=== PATIENT | male | born 1955 | race Hispanic/Latino ===

== ENCOUNTER 2021-04-30 12:55 | Observation (INO) | payer MEDICARE ==
[2021-04-26 13:13] LABS: BASOPHILS % 0.4 % (0.0-1.0); EOSINOPHILS % 0.4 % (0.0-6.0); HEMATOCRIT 38.3 % (38.2-49.6); HEMOGLOBIN 12.5 g/dL (14.0-18.0); LYMPHOCYTES # (AUTO) 2.9 (1.0-3.2); LYMPHOCYTES % 30.9 % (18.0-39.1); MEAN CORPUSCULAR HEMOGLOBIN 31.5 pg (28-32); MEAN CORPUSCULAR HGB CONC 32.6 g/dL (31-35); MEAN CORPUSCULAR VOLUME 96.5 fL (81-99); MONOCYTES # (AUTO) 0.9 (0.2-0.8); MONOCYTES % 9.4 % (4.4-11.3); NEUTROPHILS # (AUTO) 5.4 (2.1-6.9); NEUTROPHILS % 58.5 % (38.7-80.0); PLATELET COUNT 341 x10e3/uL (140-360); RED BLOOD COUNT 3.97 x10e6/uL (4.3-5.7); RED CELL DISTRIBUTION WIDTH 13.2 % (11.7-14.4)
[2021-04-26 13:30] LABS: ALBUMIN 4.1 g/dL (3.5-5.0); ALBUMIN/GLOBULIN RATIO 1.4 (0.8-2.0); ALKALINE PHOSPHATASE 94 IU/L (40-150); ANION GAP 16.3 mmol/L (8-16); BLOOD UREA NITROGEN 13 mg/dL (7-26); BUN/CREATININE RATIO 17 (6-25); CALCIUM 9.1 mg/dL (8.4-10.2); CARBON DIOXIDE 23 mmol/L (22-29); CHLORIDE 102 mmol/L (98-107); CREATININE, SERUM 0.76 mg/dL (0.72-1.25); EST GLOMERULAR FILTRATION RATE 103 ML/MIN (60-); GLUCOSE 96 mg/dL (74-118); POTASSIUM 4.3 mmol/L (3.5-5.1); SODIUM 137 mmol/L (136-145)
[2021-04-26 13:33] LABS: ALANINE AMINOTRANSFERASE < 6 IU/L (0-55)
[~2021-04-30] VITALS: Ht 170.2 cm; Wt 58.1 kg
[2021-04-30] VITALS (10 sets, daily range): BP systolic 115–162; BP diastolic 61–72
[~2021-04-30 12:55] MED LIST: AMLODIPINE BESY10 MG PO; CENTRUM SILVER1 EAC6 PO; CLOPIDOGREL75 MG PO; FLOMAX0.4 MG PO; LISINOPRIL10 MG PO; ULTIMATE OMEGA PO
[2021-04-30] MEDS ORDERED: DIPHENHYDRAMINE HCL 25 MG CAP ONE (14:03)
[2021-04-30] MEDS ORDERED: ALPRAZOLAM 0.5 MG TAB ONE (14:03)
[2021-04-30] MEDS ORDERED: MIDAZOLAM HCL 2 MG/2 ML VIAL ONE ×2 (15:27→16:10)
[2021-04-30] MEDS ORDERED: FENTANYL CITRATE/PF 100MCG/2 ML INJ ONE (15:27)
[2021-04-30] MEDS ORDERED: HEPARIN SOD/SOD CHLORIDE 2,000 ML ONE (15:28)
[2021-04-30] MEDS ORDERED: LIDOCAINE HCL 2% LOCAL 20 ML VIAL ONE (15:28)
[2021-04-30] MEDS ORDERED: SODIUM CHLORIDE 0.9% 1000ML 1,000 ML ONE ×3 (15:28→17:26)
[2021-04-30] MEDS ORDERED: IOPAMIDOL 300MG/ML 100 ML INFUS..BTL IV ONE (15:28)
[2021-04-30] MEDS ORDERED: HEPARIN SOD/SOD CHLORIDE 1,000 ML ONE (15:39)
[2021-04-30] MEDS ORDERED: VERAPAMIL HCL 2.5 MG/ML 2 ML VIAL ONE (16:15)
[2021-04-30] MEDS ORDERED: PROTAMINE SULFATE 10 MG/ML 5 ML VIAL ONE (16:31)
[2021-04-30] MEDS ORDERED: PRASUGREL 10 MG TAB ONE (16:37)
[2021-04-30] MEDS ORDERED: ASPIRIN 325 MG TAB ONE (16:37)
[2021-04-30] MEDS ORDERED: ATROPINE SULFATE 0.1 MG/ML 10ML SYR ONE (17:04)
[2021-04-30] MEDS ORDERED: NALOXONE HCL INJ 0.4 MG/ML AMP IV PRN (21:15)
[2021-04-30] MEDS ORDERED: MORPHINE SULFATE INJ 4 MG/ML INJ 1ML IV PRN (22:00)
[2021-05-01] VITALS: BP 108/75
[2021-05-01 04:00] VITALS: BP 111/56
[2021-05-01 08:00] VITALS: BP 109/57
[2021-05-01 08:14] VITALS: BP 109/57
[2021-05-01] MEDS ORDERED: ASPIRIN 81 MG CHEW TAB PO SCH (09:00)
[2021-05-01] MEDS ORDERED: CLOPIDOGREL BISULFATE 75 MG TAB PO SCH (09:00)
[2021-05-01] MEDS ORDERED: TAMSULOSIN HCL 0.4 MG CAP PO SCH (09:00)
[2021-05-01] MEDS ORDERED: AMLODIPINE BESYLATE 10 MG TAB PO SCH (09:00)
[2021-05-01] MEDS ORDERED: LISINOPRIL 10 MG TAB PO SCH (09:00)
[2021-05-01 12:06] VITALS: BP 115/55
[2021-05-01 15:16] VITALS: BP 111/54
[2021-05-01] MEDS ORDERED: ATORVASTATIN 20 MG TAB PO SCH (21:00)
== END 2021-05-01 17:33 | disposition home or self-care (01) ==
LOC: CATH LAB 12:55 → EDBD 15:00 → MED/SURG2 18:40 → INTOOBSV 18:40
PROVIDERS: ADMIT Internal Medicine Interventional Cardiology; ATTEND Internal Medicine Interventional Cardiology
DX: I70.212 Atherosclerosis of native arteries of extremities with intermittent claudication, left leg (principal); I10 Essential (primary) hypertension; Z01.812 Encounter for preprocedural laboratory examination; Z20.822 Contact with and (suspected) exposure to COVID-19; Z79.02 Long term (current) use of antithrombotics/antiplatelets; Z95.820 Peripheral vascular angioplasty status with implants and grafts
CPT/HCPCS: 36415 ×2; 37186; 37225; 75625; 76937; 80053; 82948; 85025; C1724; C1769 ×3; C1887; C1894; G0378 ×2; J2001; J2250; J2720; J3010; J7030; Q9967; U0002; 36247; 75630; 99152; 99153

== ENCOUNTER → 2025-04-21 | Outpatient (REF) | payer MEDICARE ==
[~2025-04-21] MED LIST changes: +IOPAMIDOL 370 MG/ML 100 ML INFUS..BTL INJ ONE; +SODIUM CHLORIDE 0.9% 100 ML ONE
[2025-04-21 08:25] LABS: EST GLOMERULAR FILTRATION RATE 67.0 ML/MIN (>=60)
== END ==
LOC: CT 07:26
PROVIDERS: ATTEND Internal Medicine Interventional Cardiology
DX: I65.23 Occlusion and stenosis of bilateral carotid arteries (principal)
CPT/HCPCS: 36415; 70498; 82565; 84520; J7050; Q9967